=== PATIENT | male | born 1980 | race Caucasian/White ===

== ENCOUNTER 2019-06-15 23:32 | Emergency (ER) | payer MEDICAID, OTHER ==
[~2019-06-15] VITALS: Ht 177.8 cm; Wt 102.3 kg
[~2019-06-15 23:32] MED LIST: IBUP-1985 PO; METH-360 PO
[2019-06-16] MEDS ORDERED: ondansetron 4mg rapidly disintigrating tab PO ONE (00:15)
[2019-06-16] MEDS ORDERED: ketorolac trometh. 30mg/ml inj. IM ONE (00:15)
[2019-06-16] MEDS ORDERED: diphenhydrAMINE 25mg capsule PO ONE (00:15)
[2019-06-16 01:25] LABS: BASOPHILS # (AUTO) 0.1 X10'3 (0-0.2); BASOPHILS % (AUTO) 0.8 % (0-1); EOSINOPHILS # (AUTO) 0.3 X10'3 (0-0.9); EOSINOPHILS % (AUTO) 3.3 % (0-6); HEMOGLOBIN 14.6 g/dl (14.0-17.9); LYMPHOCYTES # (AUTO) 3.2 X10'3 (1.1-4.8); LYMPHOCYTES % (AUTO) 35.1 % (21-51); MEAN CORPUSCULAR HEMOGLOBIN 30.1 PG (27.0-31.0); MEAN CORPUSCULAR HGB CONC 35.7 g/dL (33.0-36.5); MEAN CORPUSCULAR VOLUME 84.4 FL (78-98); MEAN PLATELET VOLUME 8.3 FL (7.4-10.4); MONOCYTES # (AUTO) 0.6 X10'3 (0-0.9); MONOCYTES % (AUTO) 6.4 % (2-12); NEUTROPHILS # (AUTO) 4.9 X10'3 (1.8-7.7); NEUTROPHILS % (AUTO) 54.4 % (42-75); PLATELET COUNT 265 X10'3 (140-440); RED BLOOD COUNT 4.86 X10'6 (4.70-6.10); RED CELL DISTRIBUTION WIDTH 12.7 % (11.5-14.5); WHITE BLOOD COUNT 9.1 X10'3 (4.5-11.0)
[2019-06-16 01:37] LABS: ALANINE AMINOTRANSFERASE 69 U/L (12-78); ALBUMIN/GLOBULIN RATIO 1.4 (1.1-1.5); ALKALINE PHOSPHATASE 74 IU/L (46-116); ANION GAP 11 (8-16); ASPARTATE AMINO TRANSFERASE 46 U/L (10-37); BILIRUBIN,TOTAL 0.5 MG/DL (0.1-1.0); BLOOD UREA NITROGEN 11 MG/DL (7-18); BUN/CREATININE RATIO 8.7 (5.4-32.0); CALCIUM 8.8 MG/DL (8.5-10.1); CHLORIDE 106 MMOL/L (99-107); CREATININE 1.26 MG/DL (0.60-1.10); GLUCOSE 137 MG/DL (70-104); SODIUM 144 MMOL/L (135-145); TOTAL CARBON DIOXIDE 27.3 MMOL/L (24-32); TOTAL PROTEIN 6.8 G/DL (6.4-8.2); eGFR 64 ML/MIN
[2019-06-16 01:41] LABS: POTASSIUM 2.9 MMOL/L (3.5-5.1)
[2019-06-16] MEDS ORDERED: potassium Cl 20 mEq SR tablet PO ONE (01:45)
[2019-06-16] MEDS ORDERED: POTA20TA19 PO (01:46)
[2019-06-16 02:07] VITALS: BP 170/97
== END 2019-06-16 02:09 | disposition home or self-care (01) ==
LOC: ER 23:33
DX: R51 Headache (principal); E87.6 Hypokalemia; R03.0 Elevated blood-pressure reading, without diagnosis of hypertension
CPT/HCPCS: 36415; 80053; 83880; 85025; 93005; 96372; 99284; J1885; Q0163

== ENCOUNTER 2019-06-22 22:47 | Inpatient (IN) | payer OTHER ==
[~2019-06-22] VITALS: Ht 177.8 cm; Wt 104.3 kg
[~2019-06-22 22:47] MED LIST changes: +POTA20TA19 PO
[2019-06-22] MEDS ORDERED: NO HOME MEDS (23:33)
[2019-06-23 00:31] LABS: BASOPHILS # (AUTO) 0.1 X10'3 (0-0.2); EOSINOPHILS # (AUTO) 0.2 X10'3 (0-0.9); HEMOGLOBIN 15.5 g/dl (14.0-17.9); MEAN CORPUSCULAR HGB CONC 35.3 g/dL (33.0-36.5); MONOCYTES # (AUTO) 0.7 X10'3 (0-0.9)
[2019-06-23 00:33] LABS: BASOPHILS % (AUTO) 1.2 % (0-1); EOSINOPHILS % (AUTO) 2.2 % (0-6); LYMPHOCYTES # (AUTO) 3.5 X10'3 (1.1-4.8); LYMPHOCYTES % (AUTO) 33.6 % (21-51); MEAN CORPUSCULAR HEMOGLOBIN 30.3 PG (27.0-31.0); MEAN CORPUSCULAR VOLUME 85.7 FL (78-98); MONOCYTES % (AUTO) 7.2 % (2-12); NEUTROPHILS # (AUTO) 5.8 X10'3 (1.8-7.7); NEUTROPHILS % (AUTO) 55.8 % (42-75); PLATELET COUNT 244 X10'3 (140-440); RED BLOOD COUNT 5.13 X10'6 (4.70-6.10); WHITE BLOOD COUNT 10.3 X10'3 (4.5-11.0)
[2019-06-23 00:46] LABS: ALANINE AMINOTRANSFERASE 100 U/L (12-78); ALBUMIN 4.5 G/DL (3.4-5.0); ALBUMIN/GLOBULIN RATIO 1.5 (1.1-1.5); ALKALINE PHOSPHATASE 92 IU/L (46-116); ANION GAP 8 (8-16); ASPARTATE AMINO TRANSFERASE 75 U/L (10-37); BILIRUBIN,TOTAL 0.8 MG/DL (0.1-1.0); BLOOD UREA NITROGEN 15 MG/DL (7-18); BUN/CREATININE RATIO 11.3 (5.4-32.0); CALCIUM 8.7 MG/DL (8.5-10.1); CHLORIDE 104 MMOL/L (99-107); CREATININE 1.33 MG/DL (0.60-1.10); GLUCOSE 100 MG/DL (70-104); POTASSIUM 3.7 MMOL/L (3.5-5.1); SODIUM 141 MMOL/L (135-145); TOTAL CARBON DIOXIDE 28.6 MMOL/L (24-32); TOTAL PROTEIN 7.6 G/DL (6.4-8.2); eGFR 61 ML/MIN
[2019-06-23] MEDS ORDERED: aspirin 325mg tablet PO ONE (01:00)
[2019-06-23] MEDS ORDERED: nitroGLYCERIN 1gm ointment UD TP ONE (01:00)
[2019-06-23] MEDS ORDERED: magnesium Cl slow-release 64mg tablet PO PRN (01:05)
[2019-06-23] MEDS ORDERED: potassium Cl 20 mEq SR tablet PO PRN ×2 (01:05)
[2019-06-23] MEDS ORDERED: magnesium 2GM in 50ml NS 50 ML IV PRN (01:05)
[2019-06-23] MEDS ORDERED: mag hydrox/Alum hydrox/simeth 30ml oral suspension PO PRN (01:05)
[2019-06-23] MEDS ORDERED: potassium CL 10mEq/100ml bag 100 ML IV PRN ×2 (01:05)
[2019-06-23] MEDS ORDERED: ondansetron/PF 4mg/2ml inj IV PRN (01:05)
[2019-06-23] MEDS ORDERED: magnesium hydroxide 30ml (MOM) UD suspension PO PRN (01:05)
[2019-06-23] MEDS ORDERED: acetaminophen 325mg tablet PO PRN (01:05)
[2019-06-23] MEDS ORDERED: magnesium 4gm in 100ml NS 100 ML IV PRN (01:05)
[2019-06-23 02:30] VITALS: BP 158/94
[2019-06-23 02:35] LABS: URINE AMPHETAMINE SCREEN POSITIVE (Neg); URINE BARBITUATE SCREEN NEGATIVE (Neg); URINE BENZODIAZEPINES SCREEN NEGATIVE (Neg); URINE CANNABINOID SCREEN POSITIVE (Neg); URINE COCAINE SCREEN NEGATIVE (Neg); URINE METHADONE SCREEN NEGATIVE (Neg); URINE OPIATE SCREEN NEGATIVE (Neg); URINE PHENCYCLIDINE SCREEN NEGATIVE (Neg)
[2019-06-23] MEDS ORDERED: metoprolol tartrate 1mg/ml inj IV PRN ×2 (06:20→11:10)
[2019-06-23] MEDS ORDERED: nitroGLYCERIN 0.4mg SUBLingual tab SL PRN ×2 (06:20→11:10)
--- NOTE | 2019-06-23 06:20 | NUR ---
Problems reprioritized. Patient report given, questions answered & plan of care reviewed with Gilda NORTON.
[2019-06-23 07:00] VITALS: BP 161/91
--- NOTE | 2019-06-23 07:08 | NUR ---
Patient in room PCU 3028. I have received report from Dino NORTON and had the opportunity to ask questions and assume patient care.
[2019-06-23] MEDS: aspirin 81mg tab.chew PO SCH (07:59)
[2019-06-23] MEDS: clopidogrel 75mg tablet PO SCH (08:00)
[2019-06-23] MEDS ORDERED: metoprolol tartrate 12.5mg (1/2 tablet) PO SCH (08:00)
[2019-06-23] MEDS: K and/or MAG REPLACEMENT MC SCH ×2 (08:00→21:46)
[2019-06-23] MEDS: enoxaparin 40mg/0.4ml syringe SQ SCH (08:04)
[2019-06-23] MEDS: HYDROcodone/acetaminophen 5mg/325mg tablet PO PRN ×3 (08:09→22:53)
--- NOTE | 2019-06-23 10:59 | NUR ---
Sent page to Dr. Medina: PAGER ID: [phone] MESSAGE: [phone] David Mcqueen: I have kept this patient NPO in anticipation of a Rosalinda etc., he is asking if he can eat. Is this okay with you? Thank you, Gilda [phone]
[2019-06-23 11:00] VITALS: BP 139/94
[2019-06-23] MEDS ORDERED: aminophylline 250mg/10ml inj. IV PRN (11:10)
[2019-06-23] MEDS ORDERED: regadenoson 0.4mg/5ml syringe IV PRN (11:10)
[2019-06-23 15:00] VITALS: BP 135/86
--- NOTE | 2019-06-23 18:27 | NUR ---
Problems reprioritized. Patient report given, questions answered & plan of care reviewed with Neo NORTON.
[2019-06-23 18:30] VITALS: BP 152/96
--- NOTE | 2019-06-23 18:40 | NUR ---
Patient in room PCU 3028. I have received report from Gilda NORTON and had the opportunity to ask questions and assume patient care.
[2019-06-23] MEDS: metoprolol tartrate 25mg tablet PO SCH (21:23)
--- NOTE | 2019-06-23 21:50 | NUR ---
Page Sent promotional table spacer PAGER ID: [phone] MESSAGE: David Mcqueen 3028-A here for Chest pain/HTN is requesting something for sleep. Thank you, Neo [phone]
[2019-06-23] MEDS ORDERED: diphenhydrAMINE 50 mg/ml inj IV PRN (21:55)
[2019-06-23 22:30] VITALS: BP 156/93
[2019-06-24] VITALS (11 sets, daily range): BP systolic 116–169; BP diastolic 62–96
--- NOTE | 2019-06-24 06:06 | NUR ---
Problems reprioritized. Patient report given, questions answered & plan of care reviewed with Gilda NORTON.
--- NOTE | 2019-06-24 06:15 | NUR ---
Patient in room PCU 3028. I have received report from Neo NORTON and had the opportunity to ask questions and assume patient care.
[2019-06-24] MEDS: aspirin 81mg tab.chew PO SCH (07:26)
[2019-06-24] MEDS: clopidogrel 75mg tablet PO SCH (07:26)
[2019-06-24 07:27] LABS: BASOPHILS # (AUTO) 0.1 X10'3 (0-0.2); BASOPHILS % (AUTO) 1.1 % (0-1); EOSINOPHILS # (AUTO) 0.4 X10'3 (0-0.9); EOSINOPHILS % (AUTO) 4.3 % (0-6); HEMATOCRIT 43.8 % (42.0-52.0); HEMOGLOBIN 15.2 g/dl (14.0-17.9); LYMPHOCYTES # (AUTO) 3.7 X10'3 (1.1-4.8); LYMPHOCYTES % (AUTO) 41.4 % (21-51); MEAN CORPUSCULAR HEMOGLOBIN 29.8 PG (27.0-31.0); MEAN CORPUSCULAR HGB CONC 34.8 g/dL (33.0-36.5); MEAN CORPUSCULAR VOLUME 85.8 FL (78-98); MEAN PLATELET VOLUME 8.8 FL (7.4-10.4); MONOCYTES # (AUTO) 0.7 X10'3 (0-0.9); MONOCYTES % (AUTO) 7.9 % (2-12); NEUTROPHILS % (AUTO) 45.3 % (42-75); PLATELET COUNT 249 X10'3 (140-440); RED BLOOD COUNT 5.11 X10'6 (4.70-6.10); RED CELL DISTRIBUTION WIDTH 13.1 % (11.5-14.5); WHITE BLOOD COUNT 8.9 X10'3 (4.5-11.0)
[2019-06-24] MEDS: K and/or MAG REPLACEMENT MC SCH (07:27)
[2019-06-24] MEDS: metoprolol tartrate 25mg tablet PO SCH (07:27)
[2019-06-24 08:05] LABS: ALANINE AMINOTRANSFERASE 85 U/L (12-78); ALBUMIN 3.7 G/DL (3.4-5.0); ALBUMIN/GLOBULIN RATIO 1.2 (1.1-1.5); ALKALINE PHOSPHATASE 79 IU/L (46-116); ANION GAP 7 (8-16); ASPARTATE AMINO TRANSFERASE 40 U/L (10-37); BILIRUBIN,TOTAL 0.5 MG/DL (0.1-1.0); BLOOD UREA NITROGEN 21 MG/DL (7-18); CALCIUM 8.5 MG/DL (8.5-10.1); CHLORIDE 106 MMOL/L (99-107); GLUCOSE 97 MG/DL (70-104); MAGNESIUM 2.3 MG/DL (1.5-2.4); PHOSPHORUS 4.7 MG/DL (2.3-4.5); POTASSIUM 3.9 MMOL/L (3.5-5.1); SODIUM 142 MMOL/L (135-145); TOTAL CARBON DIOXIDE 28.6 MMOL/L (24-32); TOTAL PROTEIN 6.8 G/DL (6.4-8.2); eGFR 57 ML/MIN
[2019-06-24] MEDS: enoxaparin 40mg/0.4ml syringe SQ SCH (08:24)
[2019-06-24] MEDS ORDERED: METO25TA6 PO (09:26)
--- NOTE | 2019-06-24 13:35 | NUR ---
PAGER ID: [phone] MESSAGE: ROMINA ON [email or web address], THE PRACH[facility] REPORT IS AVAILABLE ON [id number], THANK YOU
--- NOTE | 2019-06-24 14:42 | NUR ---
Patient stable for discharge per MD order. All discharge information and education reviewed with patient before signing necessary paperwork. Patient verbalizes understanding of discharge paperwork. Patient self discontinued IV with catheter in tact, hall monitor removed and returned, patient belongings packed up, prescriptions called in to [facility] on [address]. RN [facility].
== END 2019-06-24 14:37 | disposition home or self-care (01) | DRG 282 ==
LOC: ER 22:48 → ED HOLD 06-23 01:03 → EDBEDREQ 06-23 02:02 → PCU 3S 06-23 02:25 → OBSVTOIN 06-23 14:00
PROVIDERS: ADMIT Family Medicine; ATTEND Internal Medicine
PROC: 4A02XM4 Measurement of Cardiac Total Activity, External Approach (ICD-10-PCS; principal; 2019-06-24)
PROC: 3E033HZ Introduction of Radioactive Substance into Peripheral Vein, Percutaneous Approach (ICD-10-PCS; 2019-06-24)
DX: I21.A1 Myocardial infarction type 2 (principal); F15.10 Other stimulant abuse, uncomplicated; I10 Essential (primary) hypertension; I16.0 Hypertensive urgency
CPT/HCPCS: 36415; 70450; 71045; 78452; 80053; 80305; 83735; 84100; 84484; 85025; 87081; 93005; 93017; 93306; 99285; A9500; G0378; J1200; J1650; J2785

== ENCOUNTER 2019-11-14 15:06 | Emergency (ER) | payer OTHER ==
[~2019-11-14] VITALS: Ht 177.8 cm; Wt 109.0 kg
[~2019-11-14 15:06] MED LIST changes: -IBUP-1985 PO; -METH-360 PO; +METO25TA6 PO; +NO HOME MEDS; -POTA20TA19 PO
[2019-11-14 16:10] VITALS: BP 174/114
== END 2019-11-14 16:40 | disposition home or self-care (01) ==
LOC: ER 15:07
DX: S76.311A Strain of muscle, fascia and tendon of the posterior muscle group at thigh level, right thigh, initial encounter (principal); F15.90 Other stimulant use, unspecified, uncomplicated; Z79.899 Other long term (current) drug therapy; X58.XXXA Exposure to other specified factors, initial encounter; Y93.89 Activity, other specified; Y92.89 Other specified places as the place of occurrence of the external cause; Y99.8 Other external cause status
CPT/HCPCS: 99282

== ENCOUNTER 2020-03-26 00:46 | Emergency (ER) | payer OTHER ==
[~2020-03-26] VITALS: Ht 177.8 cm; Wt 110.6 kg
[2020-03-26 00:50] VITALS: BP 193/112
[2020-03-26] MEDS ORDERED: ketorolac trometh inj. 60 MG/2 ML VIAL IM ONE (02:25)
[2020-03-26] MEDS: diazepam 5mg tablet PO ONE ×2 (02:34→02:36)
--- NOTE | 2020-03-26 02:36 | NUR ---
Pill of valium removed from package, asked pt if he drove here and he has, no valium will be wasted instead of adm.
[2020-03-26] MEDS ORDERED: MELO-102 PO (02:55)
[2020-03-26] MEDS ORDERED: DIAZ5TAB PO (02:55)
[2020-03-26 03:08] LABS: CLARITY,URINE CLEAR (Clear); COLOR,URINE YELLOW (Yellow); GLUCOSE, URINE NEGATIVE (Neg); KETONES,URINE NEGATIVE (Neg); LEUKOCYTE ESTERASE ,URINE TRACE (Neg); NITRITES, URINE NEGATIVE (Neg); OCCULT BLOOD,URINE NEGATIVE (Neg); PH,URINE 6.5 (4.8-8.0); PROTEIN,URINE NEGATIVE (Neg); UROBILINOGEN,URINE 0.2 E.U/dL (0.2-1.0)
[2020-03-26 03:13] LABS: UA COLLECTION TYPE VOIDED
[2020-03-26 03:14] LABS: BACTERIA,URINE 1+ /HPF (Neg); RBC,URINE NONE SEEN /HPF (0-2); SQUAMOUS EPITHELIAL CELL,UR NONE SEEN /LPF (FEW); WBC,URINE 0-4 /HPF (0-4)
== END 2020-03-26 03:27 | disposition home or self-care (01) ==
LOC: ER 00:46
DX: M54.5 Low back pain (principal); F15.90 Other stimulant use, unspecified, uncomplicated; Z79.899 Other long term (current) drug therapy
CPT/HCPCS: 81001; 87088; 96372; 99283; J1885

== ENCOUNTER 2020-04-22 13:27 | Emergency (ER) | payer OTHER ==
[~2020-04-22] VITALS: Ht 177.8 cm; Wt 104.0 kg
[~2020-04-22 13:27] MED LIST changes: +DIAZ5TAB PO; +MELO-102 PO
[2020-04-22 13:36] VITALS: BP 153/93
[2020-04-22] MEDS ORDERED: TETanus/Pertussis (Acell)/Diphther VAC/PF (Tdap-Adult) 0.5ml syringe IMVAC ONE (14:05)
[2020-04-22] MEDS ORDERED: ciprofloxacin 250mg tablet PO ONE (14:05)
--- NOTE | 2020-04-22 14:11 | NUR ---
HAVE PATIENT SOAKING FOOT IN WARM WATER AND IODINE
[2020-04-22] MEDS ORDERED: CIPR-230 PO (14:17)
== END 2020-04-22 15:18 | disposition home or self-care (01) ==
LOC: ER 13:28
DX: S91.332A Puncture wound without foreign body, left foot, initial encounter (principal); F15.90 Other stimulant use, unspecified, uncomplicated; Z79.899 Other long term (current) drug therapy; W45.0XXA Nail entering through skin, initial encounter; Y93.89 Activity, other specified; Y92.89 Other specified places as the place of occurrence of the external cause; Y99.8 Other external cause status
CPT/HCPCS: 73630; 90471; 90715; 99283

== ENCOUNTER 2021-12-04 19:41 | Emergency (ER) | payer OTHER ==
[~2021-12-04] VITALS: Ht 177.8 cm; Wt 109.1 kg
[~2021-12-04 19:41] MED LIST changes: +LOP25T PO; -METO25TA6 PO
[2021-12-04 19:50] VITALS: BP 211/137
--- NOTE | 2021-12-04 22:05 | NUR ---
PA AT BEDSIDE FOR PROCEDURE. PT TOLERATED REMOVAL OF HOOK WELL WITH NO VERBAL COMPLAINTS NOR VISUAL DISTRESS.
[2021-12-04] MEDS ORDERED: CEPH250T PO (22:22)
== END 2021-12-04 22:36 | disposition home or self-care (01) ==
LOC: ER 19:41
DX: T16.1XXA Foreign body in right ear, initial encounter (principal); F15.10 Other stimulant abuse, uncomplicated; Z79.899 Other long term (current) drug therapy; X58.XXXA Exposure to other specified factors, initial encounter; Y93.89 Activity, other specified; Y92.89 Other specified places as the place of occurrence of the external cause; Y99.8 Other external cause status
CPT/HCPCS: 69200; 99284

== ENCOUNTER 2022-04-15 15:20 | Emergency (ER) | payer OTHER ==
[~2022-04-15] VITALS: Ht 177.8 cm; Wt 118.0 kg
[2022-04-15 15:23] VITALS: BP 204/136
[2022-04-15] MEDS ORDERED: AZIT250T2 PO (18:54)
== END 2022-04-15 19:08 | disposition home or self-care (01) ==
LOC: ER 15:20
DX: H65.02 Acute serous otitis media, left ear (principal)
CPT/HCPCS: 99283

== ENCOUNTER 2023-04-06 23:04 | Emergency (ER) | payer OTHER ==
[~2023-04-06] VITALS: Ht 177.8 cm; Wt 110.0 kg
[2023-04-06] MEDS ORDERED: TETRACAINE 0.5% 4 ML OPHTHALMIC DROPS LEFTEYE ONE (23:10)
[2023-04-06] MEDS ORDERED: fluorescein sod 1mg ophthalmic strip EACHEYE ONE (23:10)
[2023-04-07] MEDS ORDERED: POLOS RIGHTEYE (00:04)
[2023-04-07 00:10] VITALS: BP 154/98; PULSE 95; RESP 16; TEMP 98.7; O2SAT 98
== END 2023-04-07 00:12 | disposition home or self-care (01) ==
LOC: ER 23:04
DX: T15.11XA Foreign body in conjunctival sac, right eye, initial encounter (principal); Z79.2 Long term (current) use of antibiotics; Z79.899 Other long term (current) drug therapy; F15.90 Other stimulant use, unspecified, uncomplicated; W44.8XXA Other foreign body entering into or through a natural orifice, initial encounter; Y93.89 Activity, other specified; Y92.89 Other specified places as the place of occurrence of the external cause; Y99.8 Other external cause status
CPT/HCPCS: 65205; 99284

== ENCOUNTER 2023-11-13 05:32 | Emergency (ER) | payer OTHER ==
[~2023-11-13] VITALS: Ht 177.8 cm; Wt 109.1 kg
[2023-11-13 05:41] VITALS: TEMP 97.8
[2023-11-13] MEDS: metoprolol tartrate 50mg tablet PO ONE (06:46)
[2023-11-13] MEDS: ketorolac trometh. 30mg/ml inj. IM ONE (06:47)
[2023-11-13] MEDS: traMADol 50MG tablet PO ONE (06:47)
[2023-11-13] MEDS ORDERED: NAPR-56 PO (06:51)
[2023-11-13] MEDS ORDERED: CYCL-1 PO (06:51)
[2023-11-13] MEDS ORDERED: LOP12.5T PO (06:57)
[2023-11-13 07:38] VITALS: BP 183/119; PULSE 77; O2SAT 96
[2023-11-13 07:41] VITALS: RESP 16
== END 2023-11-13 07:42 | disposition home or self-care (01) ==
LOC: ER 05:33
DX: M54.50 Low back pain, unspecified (principal); I10 Essential (primary) hypertension; F15.10 Other stimulant abuse, uncomplicated; I25.2 Old myocardial infarction; Z79.899 Other long term (current) drug therapy; Z79.1 Long term (current) use of non-steroidal anti-inflammatories (NSAID)
CPT/HCPCS: 72100; 96372; 99283; J1885

== ENCOUNTER 2024-07-13 18:05 | Emergency (ER) | payer OTHER ==
[~2024-07-13] VITALS: Ht 177.8 cm; Wt 107.0 kg
[~2024-07-13 18:05] MED LIST changes: +CYCL-1 PO; +LOP12.5T PO
[2024-07-13] MEDS: proparacaine 0.5% ophthalmic drops 15ml EACHEYE ONE (20:06)
[2024-07-13] MEDS: fluorescein sod 1mg ophthalmic strip EACHEYE ONE (20:07)
[2024-07-13] MEDS ORDERED: CIPR2.5D21 RIGHTEYE (20:26)
[2024-07-13 20:48] VITALS: BP 136/89; PULSE 89; RESP 16; TEMP 97.6; O2SAT 99
[2024-07-13] MEDS: ciprofloxacin 0.3% 2.5ml ophthalmic solution EACHEYE STA (20:48)
== END 2024-07-13 20:49 | disposition home or self-care (01) ==
LOC: ER 18:06
DX: T15.11XA Foreign body in conjunctival sac, right eye, initial encounter (principal); I10 Essential (primary) hypertension; W22.8XXA Striking against or struck by other objects, initial encounter; Y93.89 Activity, other specified; Y92.89 Other specified places as the place of occurrence of the external cause; Y99.8 Other external cause status
CPT/HCPCS: 65205; 99284